=== PATIENT | male | born 1935 | race Caucasian/White ===

== ENCOUNTER 2021-02-18 17:51 | Emergency (ER) | payer MEDICARE, OTHER ==
[2021-02-18 19:11] LABS: BASOPHIL 0.6 % (0-2); EOSINOPHIL 3.8 % (0-7); HCT 31.8 % (42.0-52.0); HGB 9.8 g/dl (13.2-18.0); LYMPHOCYTE 10.5 % (15-48); MCH 29.1 pg (25.0-31.0); MCHC 30.8 g/dL (32.0-36.0); MCV 94.4 fL (78.0-100.0); MONOCYTE 16.5 % (0-12); MPV 10.1 fL (6.0-9.5); NEUTROPHIL 68.1 % (41-80); NRBC 0; PLT 589 K/uL (150-400); RBC 3.37 M/uL (4.70-6.00); RDW 15.1 % (11.5-14.0); WBC 13.3 K/uL (4.0-10.5)
[2021-02-18 19:31] LABS: BILIRUBIN NEGATIVE (NEGATIVE); BLOOD NEGATIVE Ery/uL (NEGATIVE); CLARITY CLEAR (CLEAR); COLOR YELLOW (YELLOW); GLUCOSE (U) NORMAL (NORMAL); LEUKOCYTES NEGATIVE Leu/uL (NEGATIVE); NITRITE NEGATIVE (NEGATIVE); PROTEIN TRACE (LOW) mg/dL (NEGATIVE); UROBILINOGEN 0.2 mg/dL (0.2-1.0)
[2021-02-18 19:32] LABS: ALBUMIN 2.9 g/dL (3.4-5.0); BILIRUBIN - TOTAL 0.1 mg/dL (0.2-1.0); BUN/CREAT RATIO (CALC) 21.1 RATIO; CREATININE 0.71 mg/dL (0.67-1.17); POTASSIUM 4.2 mmol/L (3.5-5.1); TOTAL PROTEIN 7.9 g/dL (6.4-8.2)
[2021-02-18 19:38] LABS: SQUAMOUS EPITHELIAL CELLS RARE
[2021-02-18] MEDS ORDERED: LEVAQUIN750 MG PO (22:50)
[2021-02-18] MEDS ORDERED: METRONIDAZOLE500 MG PO (22:50)
[2021-02-18] MEDS ORDERED: NORCO 5-325 TA1 EACH PO (22:50)
[2021-02-18] MEDS ORDERED: GAS RELIEF 8080 MG PO (22:50)
== END 2021-02-18 22:35 | disposition home or self-care (01) ==
LOC: FER 17:51
PROVIDERS: Physician Assistant
DX: K57.32 Diverticulitis of large intestine without perforation or abscess without bleeding (principal); J44.9 Chronic obstructive pulmonary disease, unspecified; I25.10 Atherosclerotic heart disease of native coronary artery without angina pectoris; Z99.81 Dependence on supplemental oxygen; Z86.73 Personal history of transient ischemic attack (TIA), and cerebral infarction without residual deficits; Z90.49 Acquired absence of other specified parts of digestive tract; Z90.81 Acquired absence of spleen; Z79.82 Long term (current) use of aspirin; Z79.899 Other long term (current) drug therapy
CPT/HCPCS: 36415; 71250; 80053; 81001; 83605; 85025; 93005